=== PATIENT | male | born 1995 | race Caucasian/White ===

== ENCOUNTER 2016-10-01 00:07 | Emergency (ER) | payer OTHER ==
[~2016-10-01] VITALS: Ht 175.3 cm; Wt 72.7 kg
[2016-10-01 00:15] VITALS: BP 152/76; PULSE 79; RESP 16; TEMP 98.4; O2SAT 96
[2016-10-01 00:48] LABS: AUTOMATED NEUTROPHIL # 6.1 TH/MM3 (1.8-7.7); BASOPHIL # 0.1 TH/MM3 (0-0.2); BASOPHIL % 0.7 % (0.0-2.0); EOSINOPHIL # 0.2 TH/MM3 (0-0.4); EOSINOPHIL % 2.1 % (0.0-4.0); HEMATOCRIT 44.7 % (39.0-51.0); HEMO FLAGS DIFF FINAL; LYMPH % 23.9 % (9.0-44.0); LYMPHOCYTE # 2.4 TH/MM3 (1.0-4.8); MEAN CORPUSCULAR HEMOGLOBIN 31.3 PG (27.0-34.0); MEAN CORPUSCULAR HGB CONC 34.4 % (32.0-36.0); MONO % 11.2 % (0.0-8.0); NEUT % 62.1 % (16.0-70.0); PLATELET COUNT 282 TH/MM3 (150-450); RED BLOOD COUNT 4.91 MIL/MM3 (4.50-5.90); RED CELL DISTRIBUTION WIDTH 13.7 % (11.6-17.2); WHITE BLOOD COUNT 9.8 TH/MM3 (4.0-11.0)
[2016-10-01 01:09] LABS: AMPHETAMINE, URINE NEG (NEG); BARBITURATES, URINE NEG (NEG); COCAINE, URINE POS (NEG)
[2016-10-01 01:28] LABS: ALT (GPT) 218 U/L (12-78); ANION GAP 8 MEQ/L (5-15); AST (GOT) 85 U/L (15-37); BICARBONATE 29.1 MEQ/L (21.0-32.0); BLOOD UREA NITROGEN 10 MG/DL (7-18); CHLORIDE 100 MEQ/L (98-107); GLOMERULAR FILTRATION RATE 109 ML/MIN (>89); POTASSIUM 3.6 MEQ/L (3.5-5.1); SODIUM (NA) 137 MEQ/L (136-145)
[2016-10-01 01:30] LABS: ACETAMINOPHEN LESS THAN 2.0 MCG/ML (10.0-30.0); ALKALINE PHOSPHATASE 81 U/L (45-117); TOTAL BILIRUBIN ADULT 0.6 MG/DL (0.2-1.0)
--- NOTE | 2016-10-01 02:11 | PD ---
HPI Chief Complaint: Psychiatric Symptoms Time Seen by Provider: 01:59 Travel History International Travel<30 days: No Contact w/Intl Traveler<30days: No Traveled to known affect area: No History of Present Illness HPI 21-year-old white male presents to emergency department under Smith act for psychological evaluation. The patient states that he had just gotten off the bus from [place] to [facility]. He states that he was looking to get into a sober living facility. He states that he had been there in the past. He has a history of IV substance abuse. He last used IV heroin earlier today. He states that he has nowhere to go. He had just gotten off the bus. He called police notifying them that he was feeling depressed and having suicidal and homicidal ideation. He stated that he was given a hang himself and physically abuse people. He denies any toxic ingestions. He states that he sat history of cutting in the past. He denies any acute medical complaints. PFSH Past Medical History ADHD: Yes (STATED BY PATIENT) Anemia: Yes Bipolar Disorder: Yes (STATED BY PATIENT) Anxiety: Yes (STATED BY PATIENT) Depression: Yes Diminished Hearing: No Medical other: Yes (ptsd) Psychiatric: Yes (PTSD, BIPOLAR) Schizophrenia: Yes Tetanus Vaccination: < 5 Years Past Surgical History Surgical History: No Previous Surgery Social History Alcohol Use: Yes Tobacco Use: Yes Substance Use: Yes (cocaine, mj, heroin ) Allergies-Medications (Allergen,Severity, Reaction): Coded Allergies: Depakote (Unverified Allergy, Severe, Anaphylaxis, 10/01/16) Reported Meds & Prescriptions Reported Meds & Active Scripts Active No Active Prescriptions or Reported Medications Review of Systems Except as stated in HPI: all other systems reviewed are Neg Psychiatric: Positive: Depression, Suicidal Ideations, Mood Disorder, Substance Abuse, Homicidal Ideation, No: Anxiety, Disorder of Thought Physical Exam Narrative GENERAL: Well-nourished, well-developed patient. SKIN: Warm and dry. Evidence of prior cutting but no acute injury. No signs of any wound infections HEAD: Normocephalic and atraumatic. EYES: No scleral icterus. No injection or drainage. ENT: No nasal drainage noted. Mucous membranes pink. Airway patent. NECK: Supple, trachea midline. Moves head freely without obvious discomfort. CARDIOVASCULAR: Regular rate and rhythm without murmurs, gallops, or rubs. RESPIRATORY: Breath sounds equal bilaterally. No accessory muscle use. GASTROINTESTINAL: Abdomen soft, non-tender, nondistended. EXTREMITIES: No cyanosis or edema. BACK: Nontender without obvious deformity. No CVA tenderness. NEURO: Patient is alert and oriented. no sensorimotor deficits. Nonfocal. Normal speech. PSYCH: No delusions. No auditory or visual hallucinations. Data Data Last Documented VS Vital Signs Date Time Temp Pulse Resp B/P Pulse Ox O2 Delivery O2 Flow Rate FiO2 10/01/16 00:15 98.4 79 16 152/76 96 Orders Complete Blood Count With Diff (10/01/16 00:23) Comprehensive Metabolic Panel (10/01/16 00:23) Drug Screen, Random Urine (10/01/16:23) Alcohol (Ethanol) (10/01/16:23) Salicylates (Aspirin) (10/01/16 00:23) Tylenol (Acetaminophen) (10/01/16 00:23) Psych Screen (10/01/16 00:23) Labs Laboratory Tests Test 10/01/16 00:20 White Blood Count 9.8 TH/MM3 Red Blood Count 4.91 MIL/MM3 Hemoglobin 15.4 GM/DL Hematocrit 44.7 % Mean Corpuscular Volume 91.0 FL Mean Corpuscular Hemoglobin 31.3 PG Mean Corpuscular Hemoglobin 34.4 % Concent Red Cell Distribution Width 13.7 % Platelet Count 282 TH/MM3 Mean Platelet Volume 7.5 FL Neutrophils (%) (Auto) 62.1 % Lymphocytes (%) (Auto) 23.9 % Monocytes (%) (Auto) 11.2 % Eosinophils (%) (Auto) 2.1 % Basophils (%) (Auto) 0.7 % Neutrophils # (Auto) 6.1 TH/MM3 Lymphocytes # (Auto) 2.4 TH/MM3 Monocytes # (Auto) 1.1 TH/MM3 Eosinophils # (Auto) 0.2 TH/MM3 Basophils # (Auto) 0.1 TH/MM3 CBC Comment DIFF FINAL Differential Comment Sodium Level 137 MEQ/L Potassium Level 3.6 MEQ/L Chloride Level 100 MEQ/L Carbon Dioxide Level 29.1 MEQ/L Anion Gap 8 MEQ/L Blood Urea Nitrogen 10 MG/DL Creatinine 0.87 MG/DL Estimat Glomerular Filtration 109 ML/MIN Rate Random Glucose 96 MG/DL Calcium Level 9.1 MG/DL Total Bilirubin 0.6 MG/DL Aspartate Amino Transf 85 U/L (AST/SGOT) Alanine Aminotransferase 218 U/L (ALT/SGPT) Alkaline Phosphatase 81 U/L Total Protein 7.9 GM/DL Albumin 4.1 GM/DL Salicylates Level 2.4 MG/DL Urine Opiates Screen POS Acetaminophen Level LESS THAN 2.0 MCG/ML Urine Barbiturates Screen NEG Urine Amphetamines Screen NEG Urine Benzodiazepines Screen NEG Urine Cocaine Screen POS Urine Cannabinoids Screen POS Ethyl Alcohol Level LESS THAN 3 MG/DL MDM Medical Decision Making Medical Screen Exam Complete: Yes Emergency Medical Condition: Yes Medical Record Reviewed: Yes Interpretation(s) Laboratory Tests Test 10/01/16 00:20 White Blood Count 9.8 TH/MM3 Red Blood Count 4.91 MIL/MM3 Hemoglobin 15.4 GM/DL Hematocrit 44.7 % Mean Corpuscular Volume 91.0 FL Mean Corpuscular Hemoglobin 31.3 PG Mean Corpuscular Hemoglobin 34.4 % Concent Red Cell Distribution Width 13.7 % Platelet Count 282 TH/MM3 Mean Platelet Volume 7.5 FL Neutrophils (%) (Auto) 62.1 % Lymphocytes (%) (Auto) 23.9 % Monocytes (%) (Auto) 11.2 % Eosinophils (%) (Auto) 2.1 % Basophils (%) (Auto) 0.7 % Neutrophils # (Auto) 6.1 TH/MM3 Lymphocytes # (Auto) 2.4 TH/MM3 Monocytes # (Auto) 1.1 TH/MM3 Eosinophils # (Auto) 0.2 TH/MM3 Basophils # (Auto) 0.1 TH/MM3 CBC Comment DIFF FINAL Differential Comment Sodium Level 137 MEQ/L Potassium Level 3.6 MEQ/L Chloride Level 100 MEQ/L Carbon Dioxide Level 29.1 MEQ/L Anion Gap 8 MEQ/L Blood Urea Nitrogen 10 MG/DL Creatinine 0.87 MG/DL Estimat Glomerular Filtration 109 ML/MIN Rate Random Glucose 96 MG/DL Calcium Level 9.1 MG/DL Total Bilirubin 0.6 MG/DL Aspartate Amino Transf 85 U/L (AST/SGOT) Alanine Aminotransferase 218 U/L (ALT/SGPT) Alkaline Phosphatase 81 U/L Total Protein 7.9 GM/DL Albumin 4.1 GM/DL Salicylates Level 2.4 MG/DL Urine Opiates Screen POS Acetaminophen Level LESS THAN 2.0 MCG/ML Urine Barbiturates Screen NEG Urine Amphetamines Screen NEG Urine Benzodiazepines Screen NEG Urine Cocaine Screen POS Urine Cannabinoids Screen POS Ethyl Alcohol Level LESS THAN 3 MG/DL Differential Diagnosis MDM: High Differential diagnoses: Schizophrenia, schizoaffective disorder, bipolar, anxiety, depression, adjustment reaction, mood disorder NOS, ODD, depressive disorder NOS, dementia, dementia with agitation, psychosis NOS, substance induced mood disorder, intermittent explosive disorder, Asperger syndrome, infection,electrolyte abnormality, malingering. Narrative Course Mental health screening discussed with the patient. Psychiatric screen ordered. The patient is been medically cleared. This is substance induced mood disorder Diagnosis Primary Impression: Substance induced mood disorder Additional Impression: Polysubstance abuse Scripts No Active Prescriptions or Reported Meds Condition: Stable Noah Chandler Oct 01, 2016 02:11
[2016-10-01 07:11] VITALS: BP 114/60; PULSE 72; RESP 17; O2SAT 98
[2016-10-01 11:00] VITALS: BP 119/63; PULSE 75; RESP 17; O2SAT 99
[2016-10-01 13:19] VITALS: BP 122/70; PULSE 80; RESP 18; TEMP 98; O2SAT 96
[2016-10-01 18:13] VITALS: BP 125/58; PULSE 96; RESP 18; O2SAT 98
--- NOTE | 2016-10-01 20:42 | MB ---
cc: DAVID JOSHI MD DATE OF CONSULTATION 10/01/2016 REQUESTING PHYSICIAN Emergency department. REASON FOR CONSULTATION Smith ACT. HISTORY OF PRESENT ILLNESS Mr. Schultz is a 21-year-old male with a reported history of depression, anxiety, ADHD and schizophrenia and a chart history of polysubstance dependence and substance-induced mood disorder who presents under a Smith ACT from [facility] Department alleging that the patient stated that he wanted to kill himself and others. Reviewing the electronic medical record, I see the patient was seen in consultation by Dr. Hurley in September of 2014, at which time she gave him the substance-induced mood disorder and polysubstance dependence diagnoses. Of note, the patient's urine toxicology is positive for opiates, cocaine and cannabinoids. The patient seen and examined. Chart reviewed. Case discussed with nursing staff. On my examination today, the patient says that he was released from [facility] about a month ago and came up to [facility] to go to [facility]. He apparently recently relapsed to substance use and has been feeling more depressed. He says his sleep is poor and disrupted by nightmares. He cites his traumatic history as finding his father who had killed himself. He endorses occasional deprecatory auditory hallucinations. No delusional beliefs. No other hallucinatory material. The patient reports ongoing suicidal ideation and made sure to that tell me as I am leaving that if I discharge him from the ED, he will doubtless kill himself. He does not describe any urge to hurt himself in the emergency room or on the inpatient psychiatric unit. PAST PSYCHIATRIC HISTORY The patient reports prior diagnoses as noted above. He is not currently under psychiatric care. He was admitted to [facility] reportedly about a month ago following a suicide attempt reportedly in which he tried to hang himself. He also endorses a history of non suicidal self-injurious behavior, namely cutting. He says he has done well in the past on Seroquel at a dose of 400 mg at bedtime. FAMILY HISTORY The patient reports that his father completed suicide. Otherwise no family psychiatric history to report. CHEMICAL DEPENDENCY HISTORY The patient admits to recent use of heroin. He says that prior to this he had been sober for 3 months. He provides no explanation for the cocaine or cannabinoids in his urine though. SOCIAL HISTORY The patient reports that he came up from [facility] to the [facility] to go to [facility]. He has a 5th grade education. He denies any or active legal issues. He denies a history of violent crime. He is single and has no children. 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 PAST MEDICAL HISTORY The patient reports a history of back pain. REVIEW OF SYSTEMS No reported headache, vision or hearing changes, chest pain, shortness of breath, bowel or bladder issues. No other somatic complaints. PHYSICAL EXAMINATION The physical examination was completed in the emergency room by the ER staff and the patient was medically cleared. On my examination today, the patient appears to be well-nourished and well-developed. He is in no acute physical distress. No abnormal motor movements noted. Labs and vital signs reviewed. The patient's urine toxicology is positive for opiates, cocaine and cannabinoids as I said. Alcohol level was undetectable. MENTAL STATUS EXAM The patient is in hospital gown. He is fairly well-groomed. He is awake, alert and oriented to person and hospital at least. No abnormal motor movements noted. Speech is within normal limits for rate, tone and volume. Language and fund of knowledge seem adequate and appropriate for age. Mood is depressed and affect is restricted. Thought process linear. No loosening of associations. No evident delusions. Reports occasional deprecatory auditory hallucinations but no other hallucinatory material. Endorses ongoing suicidal ideation at discharge. No homicidal ideation. No reported urge to hurt himself in the ED or on the inpatient psychiatric unit. Or in the ED. Insight and judgment are fair. ASSESSMENT/PLAN 1. Drug induced mood disorder F19.94. 2. Polysubstance dependence, F19.20. 3. Very strongly suspect malingering for long term as he cannot return to his sober living setting until he has a clean urine. This is a 21-year-old male with psychiatric history as detailed above who presents under a Smith ACT alleging that the patient said that he was going to hurt himself and others. The patient takes great pains to present a depressive picture to me although he is a somewhat vague historian. He continues to endorse suicidal but denies homicidal ideation. He is somewhat evasive regarding his substance use and only admits to recent relapse to heroin but omits the cocaine and cannabinoids. He has been residing apparently in a sober living setting. My presumption is that he cannot return to the sober living until he is able to produce a clean urine which will be at least a few days. I strongly suspect that he is malingering his psychiatric symptoms to bide his time until this can be done. Nonetheless, given the gravity of the symptoms he is reporting, I will plan to retain the patient in the J pod under the Smith ACT until an available inpatient psychiatric bed can be found. The patient is presently on the ACT wait list. The Smith ACT remains in place. Transfer to ACT when a bed is available. I will also start him on half of his reported normal dose of Seroquel at bedtime to begin management of his reported psychiatric symptoms, keeping the dose somewhat low to avoid excessive sedation given reported recent nonadherence. Thank you very much for this consultation. David Joshi DC/KIRK /4:47 PM /8:19 PM EMMY
[2016-10-01] MEDS ORDERED: QUEtiapine FUMARATE 200 MG TAB PO SCH (21:00)
[2016-10-01 22:08] VITALS: BP 102/50; PULSE 61; RESP 19; O2SAT 98
== END 2016-10-01 23:49 ==
LOC: NEPA 00:07 → NEPJ 23:49
DX: F39 Unspecified mood [affective] disorder (principal); F19.10 Other psychoactive substance abuse, uncomplicated; F14.10 Cocaine abuse, uncomplicated; F11.10 Opioid abuse, uncomplicated; F12.10 Cannabis abuse, uncomplicated; F90.9 Attention-deficit hyperactivity disorder, unspecified type; F31.9 Bipolar disorder, unspecified; F41.8 Other specified anxiety disorders; F43.10 Post-traumatic stress disorder, unspecified; Z72.0 Tobacco use
CPT/HCPCS: 80053; 80307; 80320; 80329; 85025; 99283; G0480

== ENCOUNTER 2016-10-09 15:36 | Emergency (ER) | payer OTHER ==
[~2016-10-09] VITALS: Ht 175.3 cm; Wt 72.5 kg
[2016-10-09 15:39] VITALS: BP 127/72; PULSE 88; RESP 16; TEMP 98.2; O2SAT 96
--- NOTE | 2016-10-09 16:22 | PD ---
HPI Chief Complaint: Psychiatric Symptoms Time Seen by Provider: 15:56 Travel History International Travel<30 days: No Contact w/Intl Traveler<30days: No Traveled to known affect area: No History of Present Illness HPI Patient is a 21-year-old male with history psychiatric, presents to emergency room with suicidal ideations. Patient reports that he has stopped all his psychiatric medications over the past 2 weeks, reports that he has been having suicidal idealizations. Patient reports that he has been cutting and thinks about cutting to commit suicide. Patient denies any use of drugs or alcohol. Patient denies any toxic ingestions. Patient reports that he is in the past to attempt to commit suicide. PFSH Past Medical History ADHD: Yes (STATED BY PATIENT) Anemia: Yes Bipolar Disorder: Yes (STATED BY PATIENT) Anxiety: Yes (STATED BY PATIENT) Depression: Yes Diminished Hearing: No Psychiatric: Yes (PTSD, BIPOLAR) Schizophrenia: Yes Past Surgical History Surgical History: No Previous Surgery Social History Alcohol Use: No Tobacco Use: Yes (1ppd) Substance Use: Yes (cocaine, mj, heroin ) Allergies-Medications (Allergen,Severity, Reaction): Coded Allergies: Depakote (Unverified Allergy, Severe, Anaphylaxis, 10/01/16) Reported Meds & Prescriptions Reported Meds & Active Scripts Active No Active Prescriptions or Reported Medications Review of Systems General / Constitutional: No: Fever Eyes: No: Visual changes HENT: No: Headaches Cardiovascular: No: Chest Pain or Discomfort Respiratory: No: Shortness of Breath Gastrointestinal: No: Abdominal Pain Genitourinary: No: Dysuria Musculoskeletal: No: Pain Skin: No Rash Neurologic: No: Weakness Psychiatric: Positive: Anxiety, Depression, Suicidal Ideations Endocrine: No: Polydipsia Hematologic/Lymphatic: No: Easy Bruising Physical Exam Narrative GENERAL: No acute distress, nontoxic SKIN: Warm and dry. HEAD: Atraumatic. Normocephalic. EYES: Pupils equal and round. No scleral icterus. No injection or drainage. ENT: No nasal bleeding or discharge. Mucous membranes pink and moist. NECK: Trachea midline. No JVD. CARDIOVASCULAR: Regular rate and rhythm. No murmur appreciated. RESPIRATORY: No accessory muscle use. Clear to auscultation. Breath sounds equal bilaterally. GASTROINTESTINAL: Abdomen soft, non-tender, nondistended. Hepatic and splenic margins not palpable. MUSCULOSKELETAL: No obvious deformities. No clubbing. No cyanosis. No edema. NEUROLOGICAL: Awake and alert. No obvious cranial nerve deficits. Motor grossly within normal limits. Normal speech. PSYCHIATRIC: Patient with suicidal indurations, negative homicidal ideations Data Data Last Documented VS Vital Signs Date Time Temp Pulse Resp B/P Pulse Ox O2 Delivery O2 Flow Rate FiO2 10/09/16 15:59 88 16 10/09/16 15:39 98.2 127/72 96 Room Air Orders Complete Blood Count With Diff (10/09/16 15:56) Comprehensive Metabolic Panel (10/09/16 15:56) Drug Screen, Random Urine (10/09/16 15:56) Alcohol (Ethanol) (10/09/16 15:56) Psych Screen (10/09/16 15:56) Spine, Lumbar - Ltd (Ap & Lat) (10/09/16 ) MDM Medical Decision Making Medical Screen Exam Complete: Yes Emergency Medical Condition: Yes Interpretation(s) Vital Signs Date Time Temp Pulse Resp B/P Pulse Ox O2 Delivery O2 Flow Rate FiO2 10/09/16 15:59 88 16 10/09/16 15:39 98.2 88 16 127/72 96 Room Air Differential Diagnosis Depression, suicidal ideations, medication noncompliance Narrative Course 21-year-old male who presents to emergency room for psychiatric evaluation. Patient is currently on multiple psychiatric medications, patient reports that he has been noncompliant for the past 2 weeks and is not taking any medications. Psychiatric screening labs ordered Will clear patient for psychiatric evaluation once labs are resulted. Scripts No Active Prescriptions or Reported Meds Dixie Jameson DO Oct 09, 2016 16:22
--- NOTE | 2016-10-09 16:34 | RADRPT ---
EXAM DATE/TIME: 10/09/2016 16:23 [facility] COMPARISON: No previous studies available for comparison. INDICATIONS : Lumbar pain. Impact to lower back. MEDICAL HISTORY : None. SURGICAL HISTORY : None. ENCOUNTER: Initial ACUITY: 2 days PAIN SCORE: 9/10 LOCATION: Lumbar FINDINGS: Two view examination was performed. There are five non-rib bearing vertebral bodies. The vertebral bodies are in normal alignment without evidence of subluxation or scoliosis. The disc spaces are leonard ntained. The pedicles are intact. Bony mineralization is normal. No fracture is identified. CONCLUSION: Unremarkable limited examination of the lumbar spine. Kuldeep Luna MD on October 09, 2016 at 16:33 Board Certified Radiologist. This report was verified electronically.
[2016-10-09 16:54] LABS: AUTOMATED NEUTROPHIL # 4.8 TH/MM3 (1.8-7.7); BASOPHIL % 0.5 % (0.0-2.0); EOSINOPHIL # 0.4 TH/MM3 (0-0.4); EOSINOPHIL % 4.7 % (0.0-4.0); HEMATOCRIT 42.9 % (39.0-51.0); HEMO FLAGS DIFF FINAL; LYMPH % 24.6 % (9.0-44.0); MEAN CELL VOLUME 92.8 FL (80.0-100.0); MEAN CORPUSCULAR HEMOGLOBIN 31.2 PG (27.0-34.0); MEAN CORPUSCULAR HGB CONC 33.6 % (32.0-36.0); MONO % 10.4 % (0.0-8.0); NEUT % 59.8 % (16.0-70.0); PLATELET COUNT 260 TH/MM3 (150-450); RED BLOOD COUNT 4.62 MIL/MM3 (4.50-5.90); RED CELL DISTRIBUTION WIDTH 13.5 % (11.6-17.2); WHITE BLOOD COUNT 8.1 TH/MM3 (4.0-11.0)
[2016-10-09 17:07] LABS: ANION GAP 8 MEQ/L (5-15)
[2016-10-09 17:13] LABS: ALKALINE PHOSPHATASE 89 U/L (45-117); ALT (GPT) 139 U/L (12-78); AST (GOT) 56 U/L (15-37); BLOOD UREA NITROGEN 10 MG/DL (7-18); CHLORIDE 102 MEQ/L (98-107); GLOMERULAR FILTRATION RATE 85 ML/MIN (>89); POTASSIUM 4.1 MEQ/L (3.5-5.1); SODIUM (NA) 140 MEQ/L (136-145); TOTAL BILIRUBIN ADULT 0.5 MG/DL (0.2-1.0)
[2016-10-09 17:39] LABS: AMPHETAMINE, URINE NEG (NEG); BARBITURATES, URINE NEG (NEG); COCAINE, URINE POS (NEG)
[2016-10-09 18:00] VITALS: BP 133/54; PULSE 91; RESP 16; TEMP 98; O2SAT 97
[2016-10-09] MEDS ORDERED: BUPR150XL PO (18:53)
[2016-10-09 19:42] VITALS: BP_SYST 160; BP_SYST 167; BP_DIAS 88; BP_DIAS 94; PULSE 73; PULSE 75; RESP 18; O2SAT 98
[2016-10-09 22:04] VITALS: BP 115/53; PULSE 68; RESP 19; O2SAT 100
[2016-10-10 02:00] VITALS: BP 112/55; PULSE 79; RESP 18; TEMP 97.5; O2SAT 99
[2016-10-10 06:24] VITALS: BP 125/57; PULSE 58; RESP 18; O2SAT 100
--- NOTE | 2016-10-10 09:59 | PD ---
History of Present Illness Chief Complaint: Psychiatric Symptoms Time Seen by Provider: 09:20 Travel History International Travel<30 Days: No Contact w/Intl Traveler<30days: No Known affected area: No Legal Status Legal Status: Voluntary History of Present Illness: History of Present Illness HPI Patient is a 21-year-old male with a reported history of depression, anxiety and ADHD, schizophrenia as well as history of substance dependence with substance induced mood disorder who presents to emergency room on a voluntary basis with reports of suicidal ideations. Patient has presented to [facility] ED 4 times since September when he moved here form [place]. He has consistently presented with suicidal ideation in context of substance use as well as in context of being homeless and seeking mcc. He has been provided with referrals for homeless shelters as well as has been transported to [facility] for treatment but upon discharge he continues to use substances. Patient currently reports that he is not allowed to return to a sober home due to his continued drug use. Patient's current toxicology screen is positive for cocaine. He has been monitored in [facility] and has presented no behavioral concerns and no suicidality. This morning he is seen and examined. Chart is reviewed. He is alert, oriented. Speech is clear, coherent. He does not appear to be responding to internal stimuli. He says that he is feeling depressed and that " I'm thinking of cutting myself or thinking of hanging myself. I told my friend Jeff how I was feeling and he brought me here to the hospital. I have had these thoughts for the past 3 days." He has not made any attempts at harming himself. He goes on to say that he has been off his medications Seroquel and Klonopin x 2 weeks.Unable to tell me who prescribed them. Upon discussion of disposition options patient begins to bargain with writter and states " I need to see a director of social work. I need help to find a place to live". I have insurance". PFSH Past Medical History ADHD: Yes (STATED BY PATIENT) Anemia: Yes Bipolar Disorder: Yes (STATED BY PATIENT) Anxiety: Yes (STATED BY PATIENT) Depression: Yes Diminished Hearing: No Psychiatric: Yes (PTSD, BIPOLAR) Schizophrenia: Yes Past Surgical History Surgical History: No Previous Surgery Psychiatric History Psychiatric History Hx Psychiatric Treatment: Per pt, he has long Hx of admissions for psychiatric and substance abuse tx. History of Inpatient Treatment: Yes Guns or firearms in home: No Social History Single homeless male Hx Alcohol Use: No Hx Tobacco Use: Yes (1ppd) Hx Substance Use: Yes (Most recently used Heroin & Cocaine IV per pt.) Substance Use Type: Alcohol, Marijuana, Amphetamines-Stimulants, Nicotine/ Cigarettes, Prescription Medications, Heroin, Cocaine Other Substances Used: Hx Meth, Flakka per records. Hx of Substance Use Treatment: Yes ([facility] October 01, 2016) Family Psychiatric History Fathetr of drug overdoes Allergies-Medications (Allergen,Severity, Reaction): Coded Allergies: Depakote (Unverified Allergy, Severe, Anaphylaxis, 10/01/16) Reported Meds & Prescriptions Reported Meds & Active Scripts Active Reported Wellbutrin Xl 24 HR (Bupropion HCl) 150 Mg Tab 150 Mg PO DAILY Review of Systems Except as stated in HPI: all other systems reviewed are Neg Psychiatric: COMPLAINS OF: Suicidal Ideation Exam Alert: Yes Gardner: Person (ox4) Mood: Calm Affect: Euthymic Speech: Clear, Logical Eye Contact: Normal Memory Intact: Comment (no impairment) Hallucinations: Other (negative) Delusions: No Suicidal: Ideation (conditional sucida lideation ) Homicidal: Ideation (negative) Insight/Judgement Poor. Poor MDM Medical Decision Making Medical Record Reviewed: Yes Assessment/Plan 21 year old male with history of substance dependence as well as reported history of depression, anxiety, ADHD who presents to ED for evaluation of suicidal ideation. Patient positive for cocaine. At [facility] time it is highly suspected that he is malingering his symptoms in order to obtain mcc. He continues to endorse conditional suicidal ideation. Nonetheless he will be referred for admission to a facility such as [facility] or [place] where his substance dependence issues can be addressed as well as he can be assessed if there is a coexisting psychiatric condition in absence of substance use. Orders Complete Blood Count With Diff (10/09/16 15:56) Comprehensive Metabolic Panel (10/09/16 15:56) Drug Screen, Random Urine (10/09/16 15:56) Alcohol (Ethanol) (10/09/16 15:56) Psych Screen (10/09/16 15:56) Spine, Lumbar - Ltd (Ap & Lat) (10/09/16 ) Diet Regular Basic (10/09/16 Dinner) Diet Regular Basic (10/10/16 Breakfast) Diet Regular Basic (10/10/16 Lunch) Results Vital Signs Date Time Temp Pulse Resp B/P Pulse Ox O2 Delivery O2 Flow Rate FiO2 10/10/16 06:24 58 18 125/57 100 Room Air 10/10/16 02:00 97.5 79 18 112/55 99 Room Air 10/09/16 22:04 68 19 115/53 100 Room Air 10/09/16 19:42 73 18 167/94 98 Room Air 10/09/16 19:42 75 18 160/88 98 Room Air 10/09/16 18:00 98.0 91 16 133/54 97 Room Air 10/09/16 15:59 88 16 10/09/16 15:39 98.2 88 16 127/72 96 Room Air Laboratory Tests Test 10/09/16 10/09/16 16:10 17:00 White Blood Count 8.1 Red Blood Count 4.62 Hemoglobin 14.4 Hematocrit 42.9 Mean Corpuscular Volume 92.8 Mean Corpuscular Hemoglobin 31.2 Mean Corpuscular Hemoglobin 33.6 Concent Red Cell Distribution Width 13.5 Platelet Count 260 Mean Platelet Volume 7.8 Neutrophils (%) (Auto) 59.8 Lymphocytes (%) (Auto) 24.6 Monocytes (%) (Auto) 10.4 Eosinophils (%) (Auto) 4.7 Basophils (%) (Auto) 0.5 Neutrophils # (Auto) 4.8 Lymphocytes # (Auto) 2.0 Monocytes # (Auto) 0.8 Eosinophils # (Auto) 0.4 Basophils # (Auto) 0.0 CBC Comment DIFF FINAL Differential Comment Sodium Level 140 Potassium Level 4.1 Chloride Level 102 Carbon Dioxide Level 30.0 Anion Gap 8 Blood Urea Nitrogen 10 Creatinine 1.08 Estimat Glomerular Filtration 85 Rate Random Glucose 65 Calcium Level 8.4 Total Bilirubin 0.5 Aspartate Amino Transf 56 (AST/SGOT) Alanine Aminotransferase 139 (ALT/SGPT) Alkaline Phosphatase 89 Total Protein 7.4 Albumin 3.6 Ethyl Alcohol Level LESS THAN 3 Urine Opiates Screen NEG Urine Barbiturates Screen NEG Urine Amphetamines Screen NEG Urine Benzodiazepines Screen NEG Urine Cocaine Screen POS Urine Cannabinoids Screen NEG Diagnosis Primary Impression: Polysubstance abuse Additional Impression: Substance induced mood disorder Psychiatrically Cleared: Yes Disposition: 65 DISC TO PSYCH CARE FACILITY Condition: Stable Problem Qualifiers Jessie Cortez Oct 10, 2016 09:59
[2016-10-10 10:21] VITALS: BP 115/57; PULSE 63; RESP 16; O2SAT 98
== END 2016-10-10 12:03 ==
LOC: NEPE 15:36 → NEPJ 10-10 12:03
DX: F19.24 Other psychoactive substance dependence with psychoactive substance-induced mood disorder (principal); R45.851 Suicidal ideations; F11.20 Opioid dependence, uncomplicated; F14.20 Cocaine dependence, uncomplicated; F12.20 Cannabis dependence, uncomplicated; D64.9 Anemia, unspecified; F43.10 Post-traumatic stress disorder, unspecified; F20.9 Schizophrenia, unspecified; Z91.14 Patient's other noncompliance with medication regimen; Z59.0 Homelessness; F17.210 Nicotine dependence, cigarettes, uncomplicated
CPT/HCPCS: 72100; 80053; 80307; 80320; 85025; 99284